=== PATIENT | female | born 1980 | race Caucasian/White ===

== ENCOUNTER 2018-10-01 16:05 | Emergency (ER) | payer OTHER ==
[2018-10-01] MEDS ORDERED: NS 500 ML IV ONE (16:25)
[2018-10-01 16:56] LABS: PLATELET COUNT 336 10^3/uL (150-400)
--- NOTE | 2018-10-01 17:05 | EDPHY ---
H & P Time Seen by Provider: 10/01/18 16:25 HPI/ROS: HPI Lightheaded. 38-year-old female by private vehicle with her son. This patient reports that for the last 3 months she has experienced intermittent lightheadedness after she has been sitting or laying down and then stands up. She reports that when she is sitting or lying down she is asymptomatic. She reports that when she has been sitting or lying down for a period of time and then stands up she feels lightheaded as if she is going to faint. She denies any associated shortness of breath. No chest pain. No palpitations. No headache. She denies vertigo. She reports that she is currently being treated with losartan and propanolol. She tells me she is prescribed the losartan for her blood pressure and propranolol for anxiety. ROS: Constitutional: No fever, no chills. As above. Eyes: No discharge. No changes in vision. ENT: No sore throat. No nasal congestion or rhinorrhea. Respiratory: No cough. No shortness of breath. Cardiac: No chest pain, no palpitations. Gastrointestinal: No abdominal pain, no vomiting, no diarrhea. Genitourinary: No hematuria. No dysuria or increased frequency with urination. Musculoskeletal: No back pain. No neck pain. No myalgias or arthralgias. Skin: No rashes. Neurological: No headache. No focal weakness or altered sensation. Past medical history: Hypertension. Anxiety. Primary care physician is Dr. Antonio Anna at [facility]. Social history: Here with her son. Nonsmoker. No alcohol. Physical Exam: General Appearance: Alert, no distress. This patient is responding to questions appropriately and in full sentences. This patient appears well- hydrated and well-nourished. Eyes: Pupils equal and round no pallor or injection. No lid edema, erythema or injection. Respiratory: There are no retractions, lungs are clear to auscultation with good air movement bilaterally. Cardiovascular: Regular rate and rhythm. No murmur. Gastrointestinal: Abdomen is soft and nontender, no masses, bowel sounds normal. No focal tenderness at McBurney's point. No Alonso sign. Neurological: Motor sensory function is grossly intact. Cranial nerves are normal. Cerebellar function normal. Gait is normal. Skin: Warm and dry, no rashes. Musculoskeletal: Neck is supple and nontender. Extremities are symmetrical. All joints range without pain or impingement. Psychiatric: No agitation. No depression. Database: EKG: EKG time is 4:39 p.m.; EKG shows a narrow complex normal sinus rhythm with a ventricular rate of 80. The CT, QRS, QT intervals are within normal limits. There are no ST-T wave changes indicative of ischemic or injury pattern. No evidence of right heart strain. No evidence of WPW, Brugada syndrome, hypertrophic cardiomyopathy. Interpreted by me. Imaging: Procedures: Emergency department course: Triage vital signs reviewed. She is moderately hypertensive. Vital signs are otherwise normal. My evaluation at rest while supine her blood pressure is 116/ 80. I witnessed her get up and go to the bathroom. She was asymptomatic. I will check orthostatics but I feel these will be unremarkable. Patient's symptoms likely secondary to taking propranolol all with losartan. Orthostatic blood pressures were obtained. These were unremarkable. She remained moderately hypertensive throughout testing. She did not become tachycardic. 5:30 p.m., with comedian, the patient was re-evaluated. I discussed results of her EKG as well as blood work. I feel she is safe for discharge. I recommended that she stop taking the propranolol for her anxiety and just take the losartan. She is to follow up with her primary care physician, Dr. Antonio Anna, on Thursday or Thursday of next week for re-evaluation. It can then be decided whether to continue her on the propranolol for her anxiety or start her on an alternative therapy. She is in agreement with this plan. She does feel comfortable going home. Return to emergency department precautions were thoroughly reviewed with her. All of her questions were answered. She was discharged from the emergency department in good condition. Differential Diagnosis: The differential diagnosis on this patient includes but is not limited to orthostatic hypotension, medication reaction. CVA, arrhythmia, acute coronary syndrome unlikely. This represents a partial list of diagnoses considered. These considerations are based on history, physical exam, past history, reassessment and diagnostic testing. Smoking Status: Never smoked Constitutional: Initial Vital Signs Temperature (C) 37.2 C 10/01/18 16:06 Heart Rate 86 10/01/18 16:06 Respiratory Rate 16 10/01/18 16:06 Blood Pressure 169/99 H 10/01/18 16:06 O2 Sat (%) 94 10/01/18 16:06 O2 Delivery Mode Room Air Allergies/Adverse Reactions: No Known Allergies Allergy (Unverified 10/01/18 16:10) Home Medications: Medication Instructions Recorded Metoprolol Succinate 10/01/18 NK [No Known Home Meds] 10/01/18 Propranolol HCl 10/01/18 Medical Decision Making - Data Points Laboratory Results: Laboratory Results 10/01/18 16:45 10/01/18 16:45 10/01/18 10/01/18 10/01/18 16:45 16:45 16:45 WBC 7.30 10^3/uL 10^3/uL (3.80-9.50) RBC 4.39 10^6/uL 10^6/uL (4.18-5.33) Hgb 13.5 g/dL g/dL (12.6-16.3) Hct 40.4 % % (38.0-47.0) MCV 92.0 fL fL (81.5-99.8) MCH 30.8 pg pg (27.9-34.1) MCHC 33.4 g/dL g/dL (32.4-36.7) RDW 14.5 % % (11.5-15.2) Plt Count 336 10^3/uL 10^3/uL (150-400) MPV 10.2 fL fL (8.7-11.7) Neut % (Auto) 52.6 % % (39.3-74.2) Lymph % (Auto) 40.0 % % (15.0-45.0) Emanuel % (Auto) 5.5 % % (4.5-13.0) Eos % (Auto) 1.2 % % (0.6-7.6) Baso % (Auto) 0.4 % % (0.3-1.7) Nucleat RBC Rel Count 0.0 % % (0.0-0.2) Absolute Neuts (auto) 3.84 10^3/uL 10^3/uL (1.70-6.50) Absolute Lymphs (auto) 2.92 10^3/uL 10^3/uL (1.00-3.00) Absolute Monos (auto) 0.40 10^3/uL 10^3/uL (0.30-0.80) Absolute Eos (auto) 0.09 10^3/uL 10^3/uL (0.03-0.40) Absolute Basos (auto) 0.03 10^3/uL 10^3/uL (0.02-0.10) Absolute Nucleated RBC 0.00 10^3/uL 10^3/uL (0-0.01) Immature Gran % 0.3 % % (0.0-1.1) Immature Gran # 0.02 10^3/uL 10^3/uL (0.00-0.10) Sodium 141 mEq/L mEq/L (135-145) Potassium 3.8 mEq/L mEq/L (3.5-5.2) Chloride 104 mEq/L mEq/L (97-110) Carbon Dioxide 25 mEq/l mEq/l (22-31) Anion Gap 12 mEq/L mEq/L (6-14) BUN 12 mg/dL mg/dL (7-23) Creatinine 0.7 mg/dL mg/dL (0.6-1.0) Estimated GFR > 60 Glucose 103 mg/dL H mg/dL (70-100) Calcium 9.4 mg/dL mg/dL (8.5-10.4) Beta HCG, Qual NEGATIVE Medications Given: Discontinued Medications Sodium Chloride (Ns) 500 mls @ 1,000 mls/hr IV EDNOW ONE PRN Reason: Protocol Stop: 10/01/18 16:54 Last Admin: 10/01/18 16:48 Dose: 500 mls Departure - Departure Disposition: Home, Routine, Self-Care Clinical Impression: Lightheaded Condition: Good Instructions: Lightheadedness (ED) Additional Instructions: Read and follow provided instructions. Follow-up with your primary care physician on Thursday for re-evaluation. Continue taking losartan as prescribed. Avoid taking propanolol until you follow up with Dr. Antonio Anna to discuss the symptoms you have been having. There are other medications he can put you on for anxiety which will not affect your blood pressure. It is likely that the combination of losartan as well as propranolol are causing your symptoms. Return to the emergency department for worsening symptoms heart palpitations, chest pain, shortness of breath, fainting or other serious concerns. Swapna y siga las instrucciones proporcionadas. Seguimiento con nair mdico de cabecera el lunes para nueva evaluacin. Seguir tomando losartan prescrito. Evite freddy propanolol hasta que de seguimiento con el Dr. Antonio Anna para tratar los sntomas que nguyen tenido. Hay otros medicamentos que le puede recetar para la ansiedad que no afectan la presi n arterial. Es probable que la combinacin de losartn trung propranolol estn causando lory sntomas. Regrese a la brissa de emergencias por empeoramiento de sntomas del corazn, palpitaciones, dolor en el pecho, dificultad para respirar, desmayos u otra graves preocupaciones. Referrals: Antonio Anna MD [Medical Doctor] - As per Instructions Print Language: Armenian
[2018-10-01 17:10] VITALS: BP 158/97
--- NOTE | 2018-10-01 22:45 | CPEKG ---
Test Reason : OPEN Blood Pressure : / mmHG Vent. Rate : 080 BPM Atrial Rate : 080 BPM P-R Int : 140 ms QRS Dur : 084 ms QT Int : 379 ms P-R-T Axes : 064 088 015 degrees QTc Int : 438 ms Sinus rhythm Nonspecific T abnormalities, inferior leads Confirmed by Jordan Williamson ([id number] on 10/01/2018 10:45:17 PM Referred By: Jordan Williamson Confirmed By:Jordan Williamson
== END 2018-10-01 18:14 | disposition home or self-care (01) ==
DX: R42 Dizziness and giddiness (principal); I10 Essential (primary) hypertension; F41.9 Anxiety disorder, unspecified; E86.9 Volume depletion, unspecified